=== PATIENT | female | born 1930 | race Asian ===

== ENCOUNTER 2017-07-15 13:48 | Emergency (ER) | payer MEDICARE, OTHER ==
[~2017-07-15] VITALS: Ht 165.1 cm; Wt 60.0 kg
[2017-07-15] MEDS ORDERED: SODIUM CHLORIDE 0.9% 1,000 ML IV ONE (14:45)
[2017-07-15 14:52] LABS: BASOPHILS # (AUTO) 0.02 K/uL (0.00-0.20); BASOPHILS % (AUTO) 0.2 % (0.0-2.0); EOSINOPHILS # (AUTO) 0.26 K/uL (0.00-0.70); EOSINOPHILS % (AUTO) 3.98 % (1.0-6.0); HEMATOCRIT 35.5 % (36-46); LYMPHOCYTES # (AUTO) 1.4 K/uL (1.0-4.8); LYMPHOCYTES % (AUTO) 21.8 % (22.0-44.0); MEAN CORPUSCULAR HEMOGLOBIN 31.8 pg (26.0-34.0); MEAN CORPUSCULAR HGB CONC 33.8 G/dL (31.0-37.0); MEAN CORPUSCULAR VOLUME 94 fL (80-100); MONOCYTES # (AUTO) 0.3 K/uL (0.1-1.0); NEUTROPHILS # (AUTO) 4.5 K/uL (1.8-7.7); NEUTROPHILS % (AUTO) 69.1 % (40.0-70.0); PLATELET COUNT (AUTO) 237 K/uL (150-450); RED BLOOD CELL COUNT(AUTO) 3.77 MIL/uL (4.00-5.20); RED CELL DISTRIBUTION WIDTH 13.9 % (11.5-14.5)
[2017-07-15 15:32] LABS: CALCIUM, TOTAL 8.5 mg/dL (8.8-10.5); CREATININE 1.06 mg/dL (0.60-1.30); POTASSIUM 3.3 mmol/L (3.5-5.1)
[2017-07-15 15:38] LABS: ALBUMIN 3.3 g/dL (3.4-5.0); BILIRUBIN,TOTAL 0.5 mg/dL (0.1-1.0)
[2017-07-15 16:02] LABS: TOTAL PROTEIN, SERUM 7.3 g/dL (6.4-8.2)
[2017-07-15] MEDS ORDERED: POTASSIUM CHLORIDE 20 MEQ ER TABLET PO ONE (16:15)
[2017-07-15 16:59] VITALS: BP 119/68
[2017-07-15 18:16] LABS: APPEARANCE,URINE CLEAR (CLEAR); BILIRUBIN,URINE NEGATIVE (NEGATIVE); GLUCOSE, URINE (UA) NEGATIVE (NEGATIVE); KETONES,URINE NEGATIVE (NEGATIVE); LEUKOCYTE ESTERASE ,URINE NEGATIVE (NEGATIVE); NITRATE,URINE NEGATIVE (NEGATIVE); OCCULT BLOOD,URINE SMALL (NEGATIVE); PROTEIN,URINE NEGATIVE (NEGATIVE)
[2017-07-15 18:18] LABS: BACTERIA,URINE None Seen /HPF (None Seen); SQUAMOUS EPITHELIAL CELL,UR Few /LPF (None Seen)
== END 2017-07-15 17:35 | disposition home or self-care (01) ==
LOC: EMS 13:50
DX: R42 Dizziness and giddiness (principal); R10.84 Generalized abdominal pain; F03.90 Unspecified dementia, unspecified severity, without behavioral disturbance, psychotic disturbance, mood disturbance, and anxiety
CPT/HCPCS: 36415; 80053; 81001; 83880; 84484; 85025; 93005; 96360; 99285; J7030

== ENCOUNTER 2018-06-30 13:21 | Inpatient (IN) | payer MEDICARE, OTHER ==
[~2018-06-30] VITALS: Ht 152.4 cm; Wt 49.5 kg
[2018-06-30] MEDS ORDERED: SODIUM CHLORIDE 0.9% 1,000 ML IV ONE ×3 (14:00→15:00)
[2018-06-30 14:31] LABS: EOSINOPHILS % (AUTO) 0 % (1.0-6.0); HEMATOCRIT 36.2 % (36-46); HEMOGLOBIN 12.2 g/dL (12.0-16.0); LYMPHOCYTES # (AUTO) 0.8 K/uL (1.0-4.8); LYMPHOCYTES % (AUTO) 4.2 % (22.0-44.0); MEAN CORPUSCULAR HEMOGLOBIN 30.9 pg (26.0-34.0); MEAN CORPUSCULAR HGB CONC 33.6 G/dL (31.0-37.0); MEAN CORPUSCULAR VOLUME 92 fL (80-100); MONOCYTES # (AUTO) 0.7 K/uL (0.1-1.0); MONOCYTES % (AUTO) 3.9 % (2.0-9.0); NEUTROPHILS # (AUTO) 16.6 K/uL (1.8-7.7); PLATELET COUNT (AUTO) 235 K/uL (150-450); RED BLOOD CELL COUNT(AUTO) 3.93 MIL/uL (4.00-5.20); RED CELL DISTRIBUTION WIDTH 14.1 % (11.5-14.5)
[2018-06-30 14:32] LABS: NEUTROPHILS % (AUTO) 90.9 % (40.0-70.0)
[2018-06-30 14:39] LABS: ANION GAP 12 mmol/L (8-16); CALCIUM, TOTAL 9.4 mg/dL (8.8-10.5); CARBON DIOXIDE 25 mmol/L (22-29); CHLORIDE 102 mmol/L (98-107); CREATININE 1.01 mg/dL (0.60-1.30); GLOMERULAR FILTR. RATE CALC 52 mL/min (>60); GLUCOSE,RANDOM 126 mg/dL (70-110); POTASSIUM 3.2 mmol/L (3.5-5.1); SODIUM SERUM 139 mmol/L (136-145); UREA NITROGEN, BLOOD 24 mg/dL (7-18)
[2018-06-30 14:45] LABS: ALANINE AMINOTRANSFERASE 19 U/L (12-78); ALBUMIN 3.3 g/dL (3.4-5.0); ALKALINE PHOSPHATASE 66 U/L (46-116); ASPARTATE AMINOTRANSFERASE 19 U/L (15-37); BILIRUBIN,TOTAL 1.4 mg/dL (0.1-1.0); LIPASE 55 U/L (73-393); TOTAL PROTEIN, SERUM 8.7 g/dL (6.4-8.2)
[2018-06-30 14:49] LABS: B-TYPE NATRIURETIC PEPTIDE 142 pg/mL (0-100)
[2018-06-30 14:58] LABS: INFLUENZA TYPE A NEGATIVE FOR TYPE A (NEGATIVE); INFLUENZA TYPE B NEGATIVE FOR TYPE B (NEGATIVE)
[2018-06-30] MEDS ORDERED: CefTRIAXone 1 GM/DEXTROSE 50 ML IV ONE (15:00)
[2018-06-30] MEDS ORDERED: AZITHROMYCIN 500 MG/NS 250 ML IV ONE (15:00)
[2018-06-30 15:11] LABS: LACTIC ACID 2.8 mmol/L (0.4-2.0)
[2018-06-30] MEDS ORDERED: RisperiDONE 1 MG TABLET PO ONE (15:15)
[2018-06-30] MEDS ORDERED: ONDANSETRON HCL 4 MG/2 ML VIAL IVP PRN (15:30)
[2018-06-30] MEDS ORDERED: ACETAMINOPHEN 325 MG TABLET PO PRN (15:30)
[2018-06-30] MEDS ORDERED: 0.9% SODIUM CHLORIDE 10 ML SYRINGE IVP PRN (15:30)
[2018-06-30] MEDS ORDERED: LORazepam 2 MG/ML VIAL IVP ONE ×2 (16:45→18:00)
[2018-06-30 21:44] VITALS: BP 135/76
[2018-07-01] VITALS (7 sets, daily range): BP systolic 106–141; BP diastolic 61–82
[2018-07-01] MEDS ORDERED: SODIUM CHLORIDE 0.9% 250 ML IV ONE (01:30)
[2018-07-01] MEDS: POTASSIUM CHL 10 MEQ/WATER 50 ML IV PRN ×2 (01:40→03:59)
[2018-07-01] MEDS ORDERED: ALBUTEROL SULFATE 2.5 MG/0.5 ML NEB SOLUTION NEB PRN (08:45)
[2018-07-01] MEDS ORDERED: IPRATROPIUM BROMIDE 0.5 MG/2.5 ML NEB SOLUTION NEB PRN (08:45)
[2018-07-01] MEDS ORDERED: 0.9% SODIUM CHLORIDE 10 ML SYRINGE IVP PRN (08:45)
[2018-07-01] MEDS ORDERED: ACETAMINOPHEN 325 MG TABLET PO PRN (08:45)
[2018-07-01] MEDS ORDERED: ONDANSETRON HCL 4 MG/2 ML VIAL IVP PRN (08:45)
[2018-07-01 08:55] LABS: BASOPHILS % (AUTO) 0.1 % (0.0-2.0); EOSINOPHILS % (AUTO) 0 % (1.0-6.0); HEMATOCRIT 30.3 % (36-46); HEMOGLOBIN 10.3 g/dL (12.0-16.0); LYMPHOCYTES # (AUTO) 0.8 K/uL (1.0-4.8); LYMPHOCYTES % (AUTO) 6.7 % (22.0-44.0); MEAN CORPUSCULAR HEMOGLOBIN 32.6 pg (26.0-34.0); MEAN CORPUSCULAR HGB CONC 33.9 G/dL (31.0-37.0); MEAN CORPUSCULAR VOLUME 96 fL (80-100); MONOCYTES # (AUTO) 0.9 K/uL (0.1-1.0); MONOCYTES % (AUTO) 7.2 % (2.0-9.0); NEUTROPHILS # (AUTO) 10.4 K/uL (1.8-7.7); PLATELET COUNT (AUTO) 172 K/uL (150-450); RED BLOOD CELL COUNT(AUTO) 3.16 MIL/uL (4.00-5.20); RED CELL DISTRIBUTION WIDTH 13.9 % (11.5-14.5)
[2018-07-01 09:26] LABS: ALANINE AMINOTRANSFERASE 14 U/L (12-78); ALBUMIN 2.3 g/dL (3.4-5.0); ALKALINE PHOSPHATASE 71 U/L (46-116); ANION GAP 10 mmol/L (8-16); ASPARTATE AMINOTRANSFERASE 24 U/L (15-37); BILIRUBIN,TOTAL 0.8 mg/dL (0.1-1.0); CALCIUM, TOTAL 8.4 mg/dL (8.8-10.5); CARBON DIOXIDE 24 mmol/L (22-29); CHLORIDE 110 mmol/L (98-107); CREATININE 0.86 mg/dL (0.60-1.30); GLUCOSE,RANDOM 96 mg/dL (70-110); POTASSIUM 3.5 mmol/L (3.5-5.1); SODIUM SERUM 144 mmol/L (136-145); TOTAL PROTEIN, SERUM 6.6 g/dL (6.4-8.2); UREA NITROGEN, BLOOD 16 mg/dL (7-18)
[2018-07-01] MEDS: HEPARIN SODIUM,PORCINE 5,000 UNITS/ML VIAL SQ SCH ×2 (09:38→20:47)
[2018-07-01 09:49] LABS: GLOMERULAR FILTR. RATE CALC > 60 mL/min (>60)
[2018-07-01] MEDS: DEXTROSE 5%-0.45% SODIUM CHL 1,000 ML IV SCH (11:04)
[2018-07-01] MEDS: POTASSIUM CHLORIDE 20 MEQ ER TABLET PO ONE ×2 (12:35→20:46)
[2018-07-01] MEDS: CefTRIAXone 1 GM/DEXTROSE 50 ML IV SCH (15:42)
[2018-07-01] MEDS: AZITHROMYCIN 500 MG/NS 250 ML IV SCH (16:19)
[2018-07-01] MEDS: IPRATROPIUM BROMIDE 0.5 MG/2.5 ML NEB SOLUTION NEB SCH ×2 (19:16→22:48)
[2018-07-01] MEDS: ALBUTEROL SULFATE 2.5 MG/0.5 ML NEB SOLUTION NEB SCH ×2 (19:17→22:48)
[2018-07-01] MEDS: ATORVASTATIN CALCIUM 20 MG TABLET PO SCH (20:46)
[2018-07-02] MEDS: DEXTROSE 5%-0.45% SODIUM CHL 1,000 ML IV SCH ×2 (01:35→12:59)
[2018-07-02] MEDS: ALBUTEROL SULFATE 2.5 MG/0.5 ML NEB SOLUTION NEB SCH ×6 (02:45→23:30)
[2018-07-02] MEDS: IPRATROPIUM BROMIDE 0.5 MG/2.5 ML NEB SOLUTION NEB SCH ×6 (02:45→23:30)
[2018-07-02 04:02] VITALS: BP 140/68
[2018-07-02 06:33] LABS: BASOPHILS % (AUTO) 0.3 % (0.0-2.0); EOSINOPHILS % (AUTO) 0.2 % (1.0-6.0); HEMATOCRIT 29.5 % (36-46); HEMOGLOBIN 10.1 g/dL (12.0-16.0); LYMPHOCYTES # (AUTO) 1.3 K/uL (1.0-4.8); LYMPHOCYTES % (AUTO) 14.2 % (22.0-44.0); MEAN CORPUSCULAR HEMOGLOBIN 32.4 pg (26.0-34.0); MEAN CORPUSCULAR HGB CONC 34.3 G/dL (31.0-37.0); MEAN CORPUSCULAR VOLUME 94 fL (80-100); MONOCYTES # (AUTO) 0.9 K/uL (0.1-1.0); MONOCYTES % (AUTO) 10.3 % (2.0-9.0); NEUTROPHILS # (AUTO) 6.7 K/uL (1.8-7.7); PLATELET COUNT (AUTO) 200 K/uL (150-450); RED BLOOD CELL COUNT(AUTO) 3.13 MIL/uL (4.00-5.20); RED CELL DISTRIBUTION WIDTH 13.5 % (11.5-14.5)
[2018-07-02 06:44] LABS: HEMOGLOBIN A1C 4.8 % (4.5-6.2)
[2018-07-02 06:57] LABS: ALANINE AMINOTRANSFERASE 22 U/L (12-78); ALBUMIN 2.3 g/dL (3.4-5.0); ALKALINE PHOSPHATASE 53 U/L (46-116); ANION GAP 8 mmol/L (8-16); ASPARTATE AMINOTRANSFERASE 33 U/L (15-37); BILIRUBIN,TOTAL 0.4 mg/dL (0.1-1.0); CALCIUM, TOTAL 8.1 mg/dL (8.8-10.5); CARBON DIOXIDE 27 mmol/L (22-29); CHLORIDE 108 mmol/L (98-107); CHOL/HDL RATIO 4.2 (3.9-5.7); CHOLESTEROL 123 mg/dL (131-200); GLUCOSE,RANDOM 104 mg/dL (70-110); HDL CHOLESTEROL 29 mg/dL (40-60); LDL CHOL (CALC.) 76 mg/dL (0-130); SODIUM SERUM 143 mmol/L (136-145); THYROID STIMULATING HORMONE 3.67 uIU/mL (0.36-3.74); TOTAL PROTEIN, SERUM 6.3 g/dL (6.4-8.2); TRIGLYCERIDES 88 mg/dL (15-150); UREA NITROGEN, BLOOD 13 mg/dL (7-18)
[2018-07-02 06:59] LABS: GLOMERULAR FILTR. RATE CALC > 60 mL/min (>60); POTASSIUM 2.6 mmol/L (3.5-5.1)
[2018-07-02 07:21] VITALS: BP 128/77
[2018-07-02] MEDS: POTASSIUM CHL 10 MEQ/WATER 50 ML IV SCH ×7 (07:44→20:44)
[2018-07-02] MEDS: HEPARIN SODIUM,PORCINE 5,000 UNITS/ML VIAL SQ SCH ×3 (08:09→20:36)
[2018-07-02 11:05] VITALS: BP 134/72
[2018-07-02] MEDS: CefTRIAXone 1 GM/DEXTROSE 50 ML IV SCH (15:18)
[2018-07-02 15:55] VITALS: BP 145/89
[2018-07-02] MEDS: AZITHROMYCIN 500 MG/NS 250 ML IV SCH (16:19)
[2018-07-02 20:09] VITALS: BP 142/81
[2018-07-02] MEDS: ATORVASTATIN CALCIUM 20 MG TABLET PO SCH (20:36)
[2018-07-02] MEDS: POTASSIUM CHL 10 MEQ/WATER 50 ML IV PRN (23:34)
[2018-07-03] VITALS: BP 148/74
[2018-07-03] MEDS: POTASSIUM CHL 10 MEQ/WATER 50 ML IV PRN ×5 (01:17→09:10)
[2018-07-03] MEDS: IPRATROPIUM BROMIDE 0.5 MG/2.5 ML NEB SOLUTION NEB SCH ×6 (02:34→23:26)
[2018-07-03] MEDS: ALBUTEROL SULFATE 2.5 MG/0.5 ML NEB SOLUTION NEB SCH ×6 (02:34→23:26)
[2018-07-03] MEDS: DEXTROSE 5%-0.45% SODIUM CHL 1,000 ML IV SCH ×2 (02:58→21:29)
[2018-07-03 04:15] VITALS: BP 139/81
[2018-07-03 04:43] LABS: ANION GAP 10 mmol/L (8-16); CALCIUM, TOTAL 8.7 mg/dL (8.8-10.5); CARBON DIOXIDE 25 mmol/L (22-29); CHLORIDE 105 mmol/L (98-107); CREATININE 0.65 mg/dL (0.60-1.30); GLUCOSE,RANDOM 92 mg/dL (70-110); PHOSPHORUS 1.6 mg/dL (2.5-4.9); POTASSIUM 3.4 mmol/L (3.5-5.1); SODIUM SERUM 140 mmol/L (136-145); UREA NITROGEN, BLOOD 6 mg/dL (7-18)
[2018-07-03 04:49] LABS: GLOMERULAR FILTR. RATE CALC > 60 mL/min (>60)
[2018-07-03 07:41] VITALS: BP 146/82
[2018-07-03] MEDS: HEPARIN SODIUM,PORCINE 5,000 UNITS/ML VIAL SQ SCH ×2 (08:04→20:45)
[2018-07-03] MEDS: ASPIRIN 81 MG CHEWABLE TABLET PO SCH (08:05)
[2018-07-03 08:26] LABS: ALANINE AMINOTRANSFERASE 56 U/L (12-78); ALBUMIN 2.6 g/dL (3.4-5.0); ALKALINE PHOSPHATASE 55 U/L (46-116); ASPARTATE AMINOTRANSFERASE 72 U/L (15-37); BILIRUBIN,TOTAL 0.5 mg/dL (0.1-1.0)
[2018-07-03] MEDS ORDERED: MAGNESIUM SULFATE 2 GM in DEXTROSE 5%-WATER 50 ML IV ONE (09:15)
[2018-07-03] MEDS: POTASSIUM PHOS/SODIUM PHOS MIXTURE 1 POWDER PACKET PO SCH ×2 (09:24→20:57)
[2018-07-03 10:21] LABS: BASOPHILS % (AUTO) 0.6 % (0.0-2.0); EOSINOPHILS % (AUTO) 1.4 % (1.0-6.0); HEMATOCRIT 35.6 % (36-46); HEMOGLOBIN 11.9 g/dL (12.0-16.0); LYMPHOCYTES # (AUTO) 1.4 K/uL (1.0-4.8); LYMPHOCYTES % (AUTO) 18.8 % (22.0-44.0); MEAN CORPUSCULAR HEMOGLOBIN 31.3 pg (26.0-34.0); MEAN CORPUSCULAR HGB CONC 33.5 G/dL (31.0-37.0); MEAN CORPUSCULAR VOLUME 93 fL (80-100); MONOCYTES # (AUTO) 0.9 K/uL (0.1-1.0); MONOCYTES % (AUTO) 12.8 % (2.0-9.0); NEUTROPHILS # (AUTO) 4.9 K/uL (1.8-7.7); NEUTROPHILS % (AUTO) 66.4 % (40.0-70.0); PLATELET COUNT (AUTO) 271 K/uL (150-450); RED BLOOD CELL COUNT(AUTO) 3.81 MIL/uL (4.00-5.20); RED CELL DISTRIBUTION WIDTH 13.9 % (11.5-14.5)
[2018-07-03 11:04] VITALS: BP 135/78
[2018-07-03] MEDS: CefTRIAXone 1 GM/DEXTROSE 50 ML IV SCH (14:34)
[2018-07-03] MEDS: AZITHROMYCIN 500 MG/NS 250 ML IV SCH (15:06)
[2018-07-03 15:12] VITALS: BP 147/80
[2018-07-03 15:16] LABS: MAGNESIUM 2.7 mg/dL (1.80-2.40); POTASSIUM 3.7 mmol/L (3.5-5.1)
[2018-07-03 20:14] VITALS: BP 164/75
[2018-07-03] MEDS: ATORVASTATIN CALCIUM 20 MG TABLET PO SCH (20:57)
[2018-07-04 00:07] VITALS: BP 154/83
[2018-07-04] MEDS: IPRATROPIUM BROMIDE 0.5 MG/2.5 ML NEB SOLUTION NEB SCH ×6 (02:34→23:15)
[2018-07-04] MEDS: ALBUTEROL SULFATE 2.5 MG/0.5 ML NEB SOLUTION NEB SCH ×6 (02:35→23:15)
[2018-07-04 04:06] VITALS: BP 138/78
[2018-07-04 06:37] LABS: BASOPHILS % (AUTO) 0.2 % (0.0-2.0); EOSINOPHILS % (AUTO) 0.4 % (1.0-6.0); HEMATOCRIT 33.3 % (36-46); HEMOGLOBIN 11.3 g/dL (12.0-16.0); LYMPHOCYTES # (AUTO) 0.9 K/uL (1.0-4.8); LYMPHOCYTES % (AUTO) 7.6 % (22.0-44.0); MEAN CORPUSCULAR HEMOGLOBIN 31.6 pg (26.0-34.0); MEAN CORPUSCULAR HGB CONC 33.9 G/dL (31.0-37.0); MEAN CORPUSCULAR VOLUME 93 fL (80-100); MONOCYTES % (AUTO) 8.5 % (2.0-9.0); NEUTROPHILS # (AUTO) 9.4 K/uL (1.8-7.7); NEUTROPHILS % (AUTO) 83.3 % (40.0-70.0); PLATELET COUNT (AUTO) 263 K/uL (150-450); RED BLOOD CELL COUNT(AUTO) 3.58 MIL/uL (4.00-5.20); RED CELL DISTRIBUTION WIDTH 13.9 % (11.5-14.5)
[2018-07-04 07:10] LABS: CHLORIDE 104 mmol/L (98-107); POTASSIUM 3.1 mmol/L (3.5-5.1); SODIUM SERUM 138 mmol/L (136-145)
[2018-07-04 07:11] VITALS: BP 127/72
[2018-07-04 07:27] LABS: ALANINE AMINOTRANSFERASE 49 U/L (12-78); ALBUMIN 2.5 g/dL (3.4-5.0); ALKALINE PHOSPHATASE 56 U/L (46-116); ANION GAP 8 mmol/L (8-16); ASPARTATE AMINOTRANSFERASE 41 U/L (15-37); BILIRUBIN,TOTAL 0.5 mg/dL (0.1-1.0); CALCIUM, TOTAL 8.4 mg/dL (8.8-10.5); CARBON DIOXIDE 26 mmol/L (22-29); CREATININE 0.61 mg/dL (0.60-1.30); GLUCOSE,RANDOM 125 mg/dL (70-110); PHOSPHORUS 2.6 mg/dL (2.5-4.9); TOTAL PROTEIN, SERUM 6.9 g/dL (6.4-8.2); UREA NITROGEN, BLOOD 6 mg/dL (7-18)
[2018-07-04 07:29] LABS: GLOMERULAR FILTR. RATE CALC > 60 mL/min (>60)
[2018-07-04] MEDS: ASPIRIN 81 MG CHEWABLE TABLET PO SCH (08:19)
[2018-07-04] MEDS: HEPARIN SODIUM,PORCINE 5,000 UNITS/ML VIAL SQ SCH ×3 (08:19→20:53)
[2018-07-04] MEDS: POTASSIUM CHLORIDE 20 MEQ ER TABLET PO PRN ×2 (08:19→16:50)
[2018-07-04] MEDS: DEXTROSE 5%-0.45% SODIUM CHL 1,000 ML IV SCH ×3 (08:20→23:33)
[2018-07-04 10:58] VITALS: BP 107/78
[2018-07-04] MEDS: LACTOBAC ACID/BULG/BIFID/THERM TABLET PO SCH ×3 (11:52→21:00)
[2018-07-04] MEDS: MetroNIDAZOLE 250 MG TABLET PO SCH ×3 (15:17→21:00)
[2018-07-04] MEDS: CefTRIAXone 1 GM/DEXTROSE 50 ML IV SCH (15:17)
[2018-07-04 15:48] VITALS: BP 143/73
[2018-07-04 19:33] VITALS: BP 123/86
[2018-07-04] MEDS: ATORVASTATIN CALCIUM 20 MG TABLET PO SCH ×2 (20:53→21:00)
[2018-07-04 20:55] LABS: POTASSIUM,URINE RANDOM 22 mmol/L (12-75)
[2018-07-04 21:04] LABS: OSMOLALITY,URINE 276 mOS/kg (50-1200)
[2018-07-04 21:21] LABS: APPEARANCE,URINE CLEAR (CLEAR); BILIRUBIN,URINE NEGATIVE (NEGATIVE); GLUCOSE, URINE (UA) NEGATIVE (NEGATIVE); KETONES,URINE NEGATIVE (NEGATIVE); LEUKOCYTE ESTERASE ,URINE NEGATIVE (NEGATIVE); NITRATE,URINE NEGATIVE (NEGATIVE); OCCULT BLOOD,URINE SMALL (NEGATIVE); PH,URINE 6.5 (5.0-8.0); PROTEIN,URINE NEGATIVE (NEGATIVE)
[2018-07-04 21:27] LABS: BACTERIA,URINE None Seen /HPF (None Seen); RBC,URINE 0-2 /HPF (0-2); SQUAMOUS EPITHELIAL CELL,UR Rare /LPF (None Seen); WBC,URINE 0-2 /HPF (0-5)
[2018-07-05 00:01] LABS: CREATININE,URINE RANDOM 48.7 mg/dL (30.0-125.0)
[2018-07-05 00:15] VITALS: BP 131/65
[2018-07-05] MEDS: ALBUTEROL SULFATE 2.5 MG/0.5 ML NEB SOLUTION NEB SCH ×7 (02:33→23:00)
[2018-07-05] MEDS: IPRATROPIUM BROMIDE 0.5 MG/2.5 ML NEB SOLUTION NEB SCH ×7 (02:33→23:00)
[2018-07-05 05:45] VITALS: BP 119/69
[2018-07-05 07:31] VITALS: BP 122/68
[2018-07-05] MEDS: LACTOBAC ACID/BULG/BIFID/THERM TABLET PO SCH ×2 (08:02→21:00)
[2018-07-05] MEDS: HEPARIN SODIUM,PORCINE 5,000 UNITS/ML VIAL SQ SCH ×2 (08:02→20:45)
[2018-07-05] MEDS: MetroNIDAZOLE 250 MG TABLET PO SCH ×3 (08:02→21:00)
[2018-07-05] MEDS: ASPIRIN 81 MG CHEWABLE TABLET PO SCH (08:03)
[2018-07-05 08:26] LABS: ALANINE AMINOTRANSFERASE 50 U/L (12-78); ALBUMIN 2.5 g/dL (3.4-5.0); ALKALINE PHOSPHATASE 58 U/L (46-116); ANION GAP 11 mmol/L (8-16); ASPARTATE AMINOTRANSFERASE 45 U/L (15-37); BILIRUBIN,TOTAL 0.4 mg/dL (0.1-1.0); CALCIUM, TOTAL 8.9 mg/dL (8.8-10.5); CARBON DIOXIDE 23 mmol/L (22-29); CHLORIDE 106 mmol/L (98-107); CREATININE 0.69 mg/dL (0.60-1.30); GLUCOSE,RANDOM 85 mg/dL (70-110); POTASSIUM 4.2 mmol/L (3.5-5.1); SODIUM SERUM 140 mmol/L (136-145); TOTAL PROTEIN, SERUM 7.2 g/dL (6.4-8.2); UREA NITROGEN, BLOOD 8 mg/dL (7-18)
[2018-07-05 08:28] LABS: GLOMERULAR FILTR. RATE CALC > 60 mL/min (>60)
[2018-07-05] MEDS: CefTRIAXone 1 GM/DEXTROSE 50 ML IV SCH (14:53)
[2018-07-05 16:12] VITALS: BP 117/66
[2018-07-05] MEDS: HALOPERIDOL LACTATE 5 MG/ML VIAL IVP PRN (17:37)
[2018-07-05 20:03] VITALS: BP 145/87
[2018-07-05] MEDS: ATORVASTATIN CALCIUM 20 MG TABLET PO SCH (21:00)
[2018-07-05 23:52] VITALS: BP 142/73
[2018-07-06] MEDS: IPRATROPIUM BROMIDE 0.5 MG/2.5 ML NEB SOLUTION NEB SCH ×6 (02:49→23:03)
[2018-07-06] MEDS: ALBUTEROL SULFATE 2.5 MG/0.5 ML NEB SOLUTION NEB SCH ×6 (02:49→23:03)
[2018-07-06 04:10] VITALS: BP 143/77
[2018-07-06 07:07] VITALS: BP 127/70
[2018-07-06 07:09] LABS: ALANINE AMINOTRANSFERASE 50 U/L (12-78); ALBUMIN 2.7 g/dL (3.4-5.0); ALKALINE PHOSPHATASE 55 U/L (46-116); ANION GAP 9 mmol/L (8-16); ASPARTATE AMINOTRANSFERASE 41 U/L (15-37); BILIRUBIN,TOTAL 0.4 mg/dL (0.1-1.0); CALCIUM, TOTAL 9.1 mg/dL (8.8-10.5); CARBON DIOXIDE 27 mmol/L (22-29); CHLORIDE 105 mmol/L (98-107); CREATININE 0.66 mg/dL (0.60-1.30); GLUCOSE,RANDOM 79 mg/dL (70-110); POTASSIUM 3.7 mmol/L (3.5-5.1); SODIUM SERUM 141 mmol/L (136-145); TOTAL PROTEIN, SERUM 7.7 g/dL (6.4-8.2); UREA NITROGEN, BLOOD 10 mg/dL (7-18)
[2018-07-06 07:11] LABS: GLOMERULAR FILTR. RATE CALC > 60 mL/min (>60)
[2018-07-06] MEDS: HEPARIN SODIUM,PORCINE 5,000 UNITS/ML VIAL SQ SCH ×2 (10:11→20:45)
[2018-07-06] MEDS: LACTOBAC ACID/BULG/BIFID/THERM TABLET PO SCH ×2 (10:11→21:00)
[2018-07-06] MEDS: ASPIRIN 81 MG CHEWABLE TABLET PO SCH (10:11)
[2018-07-06] MEDS: MetroNIDAZOLE 250 MG TABLET PO SCH ×3 (10:11→21:00)
[2018-07-06 11:01] VITALS: BP 136/72
[2018-07-06 15:03] VITALS: BP 138/75
[2018-07-06] MEDS: CefTRIAXone 1 GM/DEXTROSE 50 ML IV SCH (15:06)
[2018-07-06] MEDS ORDERED: SODIUM CHLORIDE 0.9% 100 ML ONE (15:08)
[2018-07-06 20:31] VITALS: BP 137/70
[2018-07-06] MEDS: ATORVASTATIN CALCIUM 20 MG TABLET PO SCH (21:00)
[2018-07-07 00:08] VITALS: BP 134/75
[2018-07-07] MEDS: ALBUTEROL SULFATE 2.5 MG/0.5 ML NEB SOLUTION NEB SCH ×6 (03:00→23:34)
[2018-07-07] MEDS: IPRATROPIUM BROMIDE 0.5 MG/2.5 ML NEB SOLUTION NEB SCH ×6 (03:00→23:34)
[2018-07-07 04:00] VITALS: BP 128/69
[2018-07-07 08:01] VITALS: BP 120/72
[2018-07-07] MEDS: DOCUSATE SODIUM 100 MG CAPSULE PO SCH ×2 (09:24→20:23)
[2018-07-07] MEDS: LACTOBAC ACID/BULG/BIFID/THERM TABLET PO SCH ×2 (09:24→20:23)
[2018-07-07] MEDS: MetroNIDAZOLE 250 MG TABLET PO SCH ×4 (09:24→20:23)
[2018-07-07] MEDS: ASPIRIN 81 MG CHEWABLE TABLET PO SCH (09:24)
[2018-07-07] MEDS: HEPARIN SODIUM,PORCINE 5,000 UNITS/ML VIAL SQ SCH ×2 (09:25→20:23)
[2018-07-07 10:14] LABS: ALANINE AMINOTRANSFERASE 46 U/L (12-78); ALBUMIN 2.9 g/dL (3.4-5.0); ALKALINE PHOSPHATASE 62 U/L (46-116); ANION GAP 9 mmol/L (8-16); ASPARTATE AMINOTRANSFERASE 40 U/L (15-37); BILIRUBIN,TOTAL 0.5 mg/dL (0.1-1.0); CALCIUM, TOTAL 9.1 mg/dL (8.8-10.5); CARBON DIOXIDE 27 mmol/L (22-29); CHLORIDE 104 mmol/L (98-107); CREATININE 0.72 mg/dL (0.60-1.30); GLUCOSE,RANDOM 100 mg/dL (70-110); POTASSIUM 3.6 mmol/L (3.5-5.1); SODIUM SERUM 140 mmol/L (136-145); UREA NITROGEN, BLOOD 12 mg/dL (7-18)
[2018-07-07 10:15] LABS: GLOMERULAR FILTR. RATE CALC > 60 mL/min (>60)
[2018-07-07 11:00] VITALS: BP 112/72
[2018-07-07] MEDS: CefTRIAXone 1 GM/DEXTROSE 50 ML IV SCH (15:19)
[2018-07-07] MEDS ORDERED: SODIUM CHLORIDE 0.9% 50 ML ONE (15:53)
[2018-07-07 20:00] VITALS: BP 139/76
[2018-07-07] MEDS: ATORVASTATIN CALCIUM 20 MG TABLET PO SCH (20:23)
[2018-07-07 23:05] VITALS: BP 124/84
[2018-07-08] MEDS: IPRATROPIUM BROMIDE 0.5 MG/2.5 ML NEB SOLUTION NEB SCH ×6 (03:00→23:30)
[2018-07-08] MEDS: ALBUTEROL SULFATE 2.5 MG/0.5 ML NEB SOLUTION NEB SCH ×6 (03:00→23:30)
[2018-07-08 05:40] VITALS: BP 136/76
[2018-07-08 07:22] VITALS: BP 138/73
[2018-07-08] MEDS: ASPIRIN 81 MG CHEWABLE TABLET PO SCH (08:23)
[2018-07-08] MEDS: LACTOBAC ACID/BULG/BIFID/THERM TABLET PO SCH ×2 (08:23→20:32)
[2018-07-08] MEDS: MetroNIDAZOLE 250 MG TABLET PO SCH ×2 (08:23→15:37)
[2018-07-08] MEDS: HEPARIN SODIUM,PORCINE 5,000 UNITS/ML VIAL SQ SCH ×2 (08:23→20:33)
[2018-07-08] MEDS: DOCUSATE SODIUM 100 MG CAPSULE PO SCH ×2 (08:23→20:32)
[2018-07-08 09:33] LABS: ALANINE AMINOTRANSFERASE 46 U/L (12-78); ALBUMIN 2.7 g/dL (3.4-5.0); ALKALINE PHOSPHATASE 58 U/L (46-116); ANION GAP 9 mmol/L (8-16); ASPARTATE AMINOTRANSFERASE 47 U/L (15-37); BILIRUBIN,TOTAL 0.4 mg/dL (0.1-1.0); CARBON DIOXIDE 29 mmol/L (22-29); CHLORIDE 104 mmol/L (98-107); CREATININE 0.78 mg/dL (0.60-1.30); GLOMERULAR FILTR. RATE CALC > 60 mL/min (>60); GLUCOSE,RANDOM 76 mg/dL (70-110); POTASSIUM 3.3 mmol/L (3.5-5.1); SODIUM SERUM 142 mmol/L (136-145); TOTAL PROTEIN, SERUM 7.9 g/dL (6.4-8.2); UREA NITROGEN, BLOOD 14 mg/dL (7-18)
[2018-07-08 11:03] VITALS: BP 128/76
[2018-07-08] MEDS: POTASSIUM CHLORIDE 20 MEQ ER TABLET PO PRN (11:42)
[2018-07-08] MEDS: HALOPERIDOL LACTATE 5 MG/ML VIAL IVP PRN (11:51)
[2018-07-08 15:10] VITALS: BP 130/72
[2018-07-08] MEDS ORDERED: SODIUM CHLORIDE 0.9% 250 ML IV ONE (15:30)
[2018-07-08] MEDS: QUEtiapine FUMARATE 25 MG TABLET PO SCH ×2 (15:37→20:32)
[2018-07-08] MEDS: CefTRIAXone 1 GM/DEXTROSE 50 ML IV SCH (15:37)
[2018-07-08 19:44] VITALS: BP 148/89
[2018-07-08] MEDS: ATORVASTATIN CALCIUM 20 MG TABLET PO SCH (20:32)
[2018-07-09 00:09] VITALS: BP 145/68
[2018-07-09] MEDS: ALBUTEROL SULFATE 2.5 MG/0.5 ML NEB SOLUTION NEB SCH ×6 (03:16→23:00)
[2018-07-09] MEDS: IPRATROPIUM BROMIDE 0.5 MG/2.5 ML NEB SOLUTION NEB SCH ×6 (03:16→23:00)
[2018-07-09 05:57] VITALS: BP 145/86
[2018-07-09 06:21] LABS: BASOPHILS % (AUTO) 0.9 % (0.0-2.0); EOSINOPHILS % (AUTO) 2.9 % (1.0-6.0); HEMATOCRIT 33.9 % (36-46); HEMOGLOBIN 11.5 g/dL (12.0-16.0); LYMPHOCYTES # (AUTO) 1.5 K/uL (1.0-4.8); LYMPHOCYTES % (AUTO) 26.6 % (22.0-44.0); MEAN CORPUSCULAR HEMOGLOBIN 31.6 pg (26.0-34.0); MEAN CORPUSCULAR HGB CONC 33.9 G/dL (31.0-37.0); MEAN CORPUSCULAR VOLUME 93 fL (80-100); MONOCYTES # (AUTO) 0.8 K/uL (0.1-1.0); MONOCYTES % (AUTO) 13.8 % (2.0-9.0); NEUTROPHILS # (AUTO) 3.1 K/uL (1.8-7.7); NEUTROPHILS % (AUTO) 55.8 % (40.0-70.0); PLATELET COUNT (AUTO) 412 K/uL (150-450); RED BLOOD CELL COUNT(AUTO) 3.64 MIL/uL (4.00-5.20); RED CELL DISTRIBUTION WIDTH 14.2 % (11.5-14.5)
[2018-07-09 07:48] LABS: ANION GAP 9 mmol/L (8-16); CARBON DIOXIDE 27 mmol/L (22-29); CHLORIDE 107 mmol/L (98-107); GLOMERULAR FILTR. RATE CALC > 60 mL/min (>60); GLUCOSE,RANDOM 86 mg/dL (70-110); SODIUM SERUM 143 mmol/L (136-145); UREA NITROGEN, BLOOD 15 mg/dL (7-18)
[2018-07-09] MEDS: HEPARIN SODIUM,PORCINE 5,000 UNITS/ML VIAL SQ SCH ×2 (08:45→19:51)
[2018-07-09] MEDS: DOCUSATE SODIUM 100 MG CAPSULE PO SCH ×2 (09:00→19:51)
[2018-07-09] MEDS: QUEtiapine FUMARATE 25 MG TABLET PO SCH ×3 (09:00→19:51)
[2018-07-09] MEDS: LACTOBAC ACID/BULG/BIFID/THERM TABLET PO SCH ×2 (09:00→19:51)
[2018-07-09] MEDS: ASPIRIN 81 MG CHEWABLE TABLET PO SCH (09:00)
[2018-07-09 12:18] VITALS: BP 141/75
[2018-07-09] MEDS: CefTRIAXone 1 GM/DEXTROSE 50 ML IV SCH (14:21)
[2018-07-09 15:42] VITALS: BP 148/79
[2018-07-09] MEDS ORDERED: DEXTROSE 5%-0.45% SODIUM CHL 1,000 ML IV ONE (17:39)
[2018-07-09] MEDS: DEXTROSE 5%-0.45% SODIUM CHL 1,000 ML IV SCH (18:17)
[2018-07-09 19:27] VITALS: BP 134/90
[2018-07-09] MEDS: ATORVASTATIN CALCIUM 20 MG TABLET PO SCH (19:51)
[2018-07-09 23:58] VITALS: BP 119/62
[2018-07-10] MEDS: IPRATROPIUM BROMIDE 0.5 MG/2.5 ML NEB SOLUTION NEB SCH ×6 (03:00→23:00)
[2018-07-10] MEDS: ALBUTEROL SULFATE 2.5 MG/0.5 ML NEB SOLUTION NEB SCH ×6 (03:00→23:00)
[2018-07-10 04:33] VITALS: BP 125/60
[2018-07-10 05:55] LABS: ANION GAP 8 mmol/L (8-16); CALCIUM, TOTAL 8.6 mg/dL (8.8-10.5); CARBON DIOXIDE 26 mmol/L (22-29); CHLORIDE 106 mmol/L (98-107); CREATININE 0.73 mg/dL (0.60-1.30); GLUCOSE,RANDOM 105 mg/dL (70-110); PHOSPHORUS 3.3 mg/dL (2.5-4.9); POTASSIUM 3.7 mmol/L (3.5-5.1); SODIUM SERUM 140 mmol/L (136-145); UREA NITROGEN, BLOOD 13 mg/dL (7-18)
[2018-07-10 05:56] LABS: GLOMERULAR FILTR. RATE CALC > 60 mL/min (>60)
[2018-07-10 07:35] LABS: APPEARANCE,URINE HAZY (CLEAR); BILIRUBIN,URINE NEGATIVE (NEGATIVE); GLUCOSE, URINE (UA) NEGATIVE (NEGATIVE); KETONES,URINE NEGATIVE (NEGATIVE); LEUKOCYTE ESTERASE ,URINE NEGATIVE (NEGATIVE); NITRATE,URINE NEGATIVE (NEGATIVE); OCCULT BLOOD,URINE MODERATE (NEGATIVE); PH,URINE 5.5 (5.0-8.0); PROTEIN,URINE NEGATIVE (NEGATIVE); UROBILINOGEN,URINE 0.2 mg/dL (<=1.0)
[2018-07-10 07:43] LABS: BACTERIA,URINE Few /HPF (None Seen); SQUAMOUS EPITHELIAL CELL,UR Moderate /LPF (None Seen)
[2018-07-10] MEDS: LACTOBAC ACID/BULG/BIFID/THERM TABLET PO SCH ×2 (07:54→20:37)
[2018-07-10] MEDS: QUEtiapine FUMARATE 25 MG TABLET PO SCH ×3 (07:54→20:37)
[2018-07-10] MEDS: DOCUSATE SODIUM 100 MG CAPSULE PO SCH ×2 (07:54→20:37)
[2018-07-10] MEDS: ASPIRIN 81 MG CHEWABLE TABLET PO SCH (07:54)
[2018-07-10] MEDS: HEPARIN SODIUM,PORCINE 5,000 UNITS/ML VIAL SQ SCH ×2 (07:55→20:37)
[2018-07-10 08:12] VITALS: BP 158/89
[2018-07-10] MEDS: DEXTROSE 5%-0.45% SODIUM CHL 1,000 ML IV SCH (11:09)
[2018-07-10 12:05] VITALS: BP 142/87
[2018-07-10 18:50] VITALS: BP 124/86
[2018-07-10 19:45] VITALS: BP 137/70
[2018-07-10] MEDS: ATORVASTATIN CALCIUM 20 MG TABLET PO SCH (20:37)
[2018-07-10] MEDS: MIRTAZAPINE 15 MG TABLET PO SCH (20:37)
[2018-07-11] MEDS: DEXTROSE 5%-0.45% SODIUM CHL 1,000 ML IV SCH ×2 (00:30→14:49)
[2018-07-11 00:45] VITALS: BP 151/88
[2018-07-11] MEDS: ALBUTEROL SULFATE 2.5 MG/0.5 ML NEB SOLUTION NEB SCH ×6 (03:00→23:00)
[2018-07-11] MEDS: IPRATROPIUM BROMIDE 0.5 MG/2.5 ML NEB SOLUTION NEB SCH ×6 (03:00→23:00)
[2018-07-11 05:05] VITALS: BP 144/88
[2018-07-11 07:40] VITALS: BP 148/83
[2018-07-11] MEDS: HEPARIN SODIUM,PORCINE 5,000 UNITS/ML VIAL SQ SCH ×2 (09:43→20:41)
[2018-07-11] MEDS: DOCUSATE SODIUM 100 MG CAPSULE PO SCH ×2 (09:43→20:41)
[2018-07-11] MEDS: QUEtiapine FUMARATE 25 MG TABLET PO SCH ×3 (09:43→20:40)
[2018-07-11] MEDS: ASPIRIN 81 MG CHEWABLE TABLET PO SCH (09:43)
[2018-07-11] MEDS: LACTOBAC ACID/BULG/BIFID/THERM TABLET PO SCH ×2 (09:43→20:40)
[2018-07-11 11:10] VITALS: BP 133/68
[2018-07-11 15:20] VITALS: BP 124/66
[2018-07-11 20:03] VITALS: BP 125/73
[2018-07-11] MEDS: MIRTAZAPINE 15 MG TABLET PO SCH (20:40)
[2018-07-11] MEDS: ATORVASTATIN CALCIUM 20 MG TABLET PO SCH (20:40)
[2018-07-12 00:14] VITALS: BP 121/62
[2018-07-12] MEDS: ALBUTEROL SULFATE 2.5 MG/0.5 ML NEB SOLUTION NEB SCH ×3 (03:00→11:29)
[2018-07-12] MEDS: IPRATROPIUM BROMIDE 0.5 MG/2.5 ML NEB SOLUTION NEB SCH ×3 (03:00→11:30)
[2018-07-12 04:00] VITALS: BP 118/87
[2018-07-12] MEDS: DEXTROSE 5%-0.45% SODIUM CHL 1,000 ML IV SCH (06:14)
[2018-07-12 07:40] VITALS: BP 144/80
[2018-07-12] MEDS: HEPARIN SODIUM,PORCINE 5,000 UNITS/ML VIAL SQ SCH (09:55)
[2018-07-12] MEDS: ASPIRIN 81 MG CHEWABLE TABLET PO SCH (09:55)
[2018-07-12] MEDS: LACTOBAC ACID/BULG/BIFID/THERM TABLET PO SCH (09:55)
[2018-07-12] MEDS: DOCUSATE SODIUM 100 MG CAPSULE PO SCH (09:55)
[2018-07-12] MEDS: QUEtiapine FUMARATE 25 MG TABLET PO SCH (09:55)
[2018-07-12 11:39] VITALS: BP 125/78
[2018-07-12] MEDS ORDERED: HALOPERIDOL LACTATE 5 MG/ML VIAL IM ONE (15:15)
== END 2018-07-12 15:15 | DRG 871 ==
LOC: EMS 13:23 → 5N 18:54 → 5S 07-01 04:13 → 6N 07-07 17:43
PROVIDERS: ADMIT Internal Medicine; ATTEND Internal Medicine
DX: A41.9 Sepsis, unspecified organism (principal); J18.9 Pneumonia, unspecified organism; E44.0 Moderate protein-calorie malnutrition; E87.6 Hypokalemia; R74.8 Abnormal levels of other serum enzymes; E83.42 Hypomagnesemia; K59.00 Constipation, unspecified; I10 Essential (primary) hypertension; R34 Anuria and oliguria; F03.90 Unspecified dementia, unspecified severity, without behavioral disturbance, psychotic disturbance, mood disturbance, and anxiety; Z78.1 Physical restraint status; Z87.440 Personal history of urinary (tract) infections; Z68.21 Body mass index [BMI] 21.0-21.9, adult
CPT/HCPCS: 51701; 70450; 82570; 83036; 83605; 83735; 83935; 84100; 84132; 84133; 84145; 84443; 87040; 87804; 93005; 93306; 93970; 94640; 96361; 96365; 96375; 97116; 97162; 99291; G0378; J0456; J0696; J1630; J1644; J2060; J3475; J3480; J7050; J7060